=== PATIENT | male | born 1970 | race Caucasian/White ===

== ENCOUNTER 2023-12-09 12:41 | Emergency (ER) | payer OTHER ==
[~2023-12-09] VITALS: Ht 170.2 cm; Wt 82.0 kg
[2023-12-09 12:43] VITALS: BP 133/87; PULSE 96; RESP 16; TEMP 98.4; O2SAT 98
[2023-12-09] MEDS: FAMOTIDINE 20MG TABLET PO ONE (13:36)
[2023-12-09] MEDS: MAGNESIUM/ALUMINUM HYDROXIDE/SIMETHICONE 30ML UDC PO STA (13:36)
[2023-12-09 13:48] LABS: BASOPHILS % 0.4 % (0.0-2.0); EOSINOPHILS % 3.9 % (0.0-5.0); HEMATOCRIT. 40.9 % (42.0-52.0); HEMOGLOBIN. 13.8 g/dL (14.0-18.0); LYMPHOCYTES % 27.7 % (20.0-50.0); MEAN CORPUSCULAR HEMOGLOBIN 30.7 pg (28.0-32.0); MEAN CORPUSCULAR HGB CONC 33.7 g/dL (31.0-37.0); MEAN CORPUSCULAR VOLUME 91.2 fL (80.0-94.0); MONOCYTES % 6.7 % (2.0-8.0); NEUTROPHILS % 61.3 % (40.0-76.0); PLATELET 333 x1000/uL (130-400); RED BLOOD CELL COUNT 4.49 mill/uL (4.7-6.1); RED CELL DISTRIBUTION WIDTH 14.3 % (11.6-14.6)
[2023-12-09 13:54] LABS: CHLORIDE 111 mEq/L (98-107); POTASSIUM 4.4 mEq/L (3.5-5.1); SODIUM 141 mEq/L (136-145)
[2023-12-09 13:55] LABS: CALCIUM 8.2 mg/dL (8.7-10.4); CARBON DIOXIDE 25 mEq/L (21-32)
[2023-12-09 14:00] LABS: GLUCOSE 110 mg/dL (70-105); UREA NITROGEN BLOOD 27 mg/dL (9-23)
[2023-12-09 14:02] LABS: ALANINE AMINOTRANSFERASE 26 IU/L (10-49); ALBUMIN 3.9 g/dL (3.2-4.8); ASPARTATE AMINOTRANSFERASE 18 IU/L (<34); BILIRUBIN TOTAL 0.3 mg/dL (0.1-1.0); PROTEIN TOTAL 6.8 g/dL (6.0-8.3)
[2023-12-09 14:08] LABS: TROPONIN I HIGH SENSITIVITY < 4 ng/L (3.0-53)
[2023-12-09 16:04] LABS: TROPONIN I HIGH SENSITIVITY < 4 ng/L (3.0-53)
== END 2023-12-09 18:32 | disposition home or self-care (01) ==
LOC: ER 12:41
DX: R07.9 Chest pain, unspecified (principal); F32.A Depression, unspecified; F20.9 Schizophrenia, unspecified; F17.200 Nicotine dependence, unspecified, uncomplicated
CPT/HCPCS: 36415; 71046; 80053; 83880; 84484; 85025; 93005; 99285